=== PATIENT | female | born 1990 | race Caucasian/White ===

== ENCOUNTER 2021-03-22 11:18 | Day surgery (SDC) | payer BC ==
[2021-03-22] MEDS ORDERED: hydrALAZINE 20 MG/ML VIAL SLOW IVP PRN (11:59)
[2021-03-22] MEDS ORDERED: Ondansetron PF 4 MG/2 ML Vial IVP PRN (11:59)
[2021-03-22 13:19] LABS: Hemoglobin 11.9 g/dL (12.0-15.5); Mean Corpuscular HGB CONC 32.7 g/dL (32.0-36.0); Mean Corpuscular Hemoglobin 29.5 pg (27.0-33.0); Mean Corpuscular Volume 90.3 fl (81.6-98.3); Mean Platelet Volume 11.2 fl (7.4-10.4); Platelet Count 156 10x3/uL (150-450); Red Blood Cell (RBC) Count 4.03 10x6/uL (3.90-5.03); White Blood Cell (WBC) Count 7.9 10x3/uL (3.5-10.5)
[2021-03-22 13:34] LABS: ALT (SGPT) 15 U/L (8-55); AST (SGOT) 17 U/L (5-34); Albumin 3.2 g/dL (3.5-5.0); Alkaline Phosphatase 135 U/L (40-110); Anion Gap 14 mmol/L (10-20); BUN (Urea Nitrogen) 6 mg/dL (7.0-18.7); Bilirubin, Total 0.4 mg/dL (0.2-1.2); Calc. Creatinine Clearance 0 mL/min (70-130); Calcium 9.3 mg/dL (7.8-10.44); Carbon Dioxide 25 mmol/L (22-29); Chloride 101 mmol/L (98-107); Globulin 3.4 g/dL (2.4-3.5); Glucose 80 mg/dL (70-105); Protein, Total 6.6 g/dL (6.0-8.3); Sodium 136 mmol/L (136-145)
== END 2021-03-22 14:25 | disposition home or self-care (01) ==
LOC: CSHLD/OP 11:18
PROVIDERS: ATTEND Advanced Practice Midwife
DX: O99.891 Other specified diseases and conditions complicating pregnancy (principal); R03.0 Elevated blood-pressure reading, without diagnosis of hypertension; Z3A.36 36 weeks gestation of pregnancy
CPT/HCPCS: 36415; 80053; 85027

== ENCOUNTER → 2021-04-03 | Day surgery (SDC) | payer BC ==
[~2021-04-03] MED LIST: Adacel (T-DAP) 0.5 ML SYRINGE IM ONE; Benzocaine-Menthol 82.5 ML CAN TOP PRN; Bisacodyl 10 MG SUPP PR PRN; Docusate Calcium (SURFAK) 240 MG CAP PO SCH; Ferrous Sulfate 325 MG TAB PO SCH; HYDROcodone/Acetaminophen 5/325 mg Tablet PO PRN; Ibuprofen 800 MG TAB PO SCH; Lanolin Ointment 7 GM TUBE TOP PRN; Lidocaine 1% (PF) 30 ML VIAL ONE; Methylergonovine 0.2 MG/ML VIAL ONE; Milk Of Magnesia 30 ML UDCUP PO PRN; NS w/ Oxytocin 30 units 500 ML IV SCH; NS w/ Oxytocin 30 units 500 ML ONE; Oxytocin 10 UNITS/ML VIAL ONE; Prenatal Vitamin 1 TAB PO SCH; hydrALAZINE 20 MG/ML VIAL SLOW IVP PRN
[2021-04-03 01:54] VITALS: BMI 31.6
[2021-04-03 03:46] LABS: Hemoglobin 12.4 g/dL (12.0-15.5); Mean Corpuscular HGB CONC 33.2 g/dL (32.0-36.0); Mean Corpuscular Hemoglobin 29.4 pg (27.0-33.0); Mean Corpuscular Volume 88.6 fl (81.6-98.3); Platelet Count 150 10x3/uL (150-450); RBC Distribution Width 13.9 % (11.5-14.5); Red Blood Cell (RBC) Count 4.22 10x6/uL (3.90-5.03); White Blood Cell (WBC) Count 6.9 10x3/uL (3.5-10.5)
[2021-04-03 04:23] LABS: Hep B Surf Ag Non-Reactive S/CO (NonReactive)
[2021-04-03 04:24] LABS: Syphilis Antibody Nonreactive (Nonreactive); Syphilis Antibody Index 0.06 S/CO (<1.00 Non-Reactive)
[2021-04-03 04:29] LABS: HBSAg Index 0.17 S/CO (0-0.99)
[2021-04-03 14:13] LABS: SARS-CoV-2 PCR by NAA Not Detected (NotDetected)
== END ==
LOC: CSHLD/OP 01:28
PROVIDERS: ATTEND Obstetrics & Gynecology
DX: O99.891 Other specified diseases and conditions complicating pregnancy (principal); N89.8 Other specified noninflammatory disorders of vagina; O47.1 False labor at or after 37 completed weeks of gestation; Z3A.38 38 weeks gestation of pregnancy; Z20.822 Contact with and (suspected) exposure to COVID-19
CPT/HCPCS: 85027; 86780; 86850; 86900; 86901; 87340; 87635; J2001; J2210; J2590; U0003; U0005